=== PATIENT | male | born 1990 | race Two or more races ===

== ENCOUNTER 2019-03-08 23:05 | Emergency (ER) | payer SELFPAY ==
[~2019-03-08] VITALS: Ht 167.6 cm; Wt 99.8 kg
--- NOTE | 2019-03-08 23:05 | NUR ---
ED Nurse Note: pt ambulated to ed c/o chest pain [id number]. reports numbness on left arm. AO4. nad. Sinus Tach. family at bedside.
[2019-03-08 23:25] VITALS: BP 161/92
--- NOTE | 2019-03-08 23:32 | Emergency Room Report ---
History of Present Illness General Chief Complaint: Chest Pain Source: Patient Present Illness HPI Is a 28-year-old male with no past medical history he presents with chief complaint of left arm numbness and chest pain. Onset was acute and occur about an hour or 2 prior to arrival. He was in bed with his son. He said he got up and felt numbness to his arm. His last for a few seconds. He has some funny sensation in his chest. He stood up and felt lightheaded. He was concerned he came into be evaluated. The patient denies any chest pain now. Denies any arm numbness now. He is completely asymptomatic. No shortness of breath. No diaphoresis. Symptoms only last a few minutes. Allergies: Coded Allergies: No Known Allergies (Unverified , 03/08/19) Patient History Past Medical History: see triage record, old chart reviewed Past Surgical History: none Pertinent Family History: none Social History: Denies: smoking Immunizations: other Reviewed Nursing Documentation: PMH: Agreed; PSxH: Agreed Nursing Documentation-PM Past Medical History: No Stated History Review of Systems Eye: Denies: eye pain, blurred vision ENT: Denies: ear pain, nose congestion, throat swelling Respiratory: Denies: cough, shortness of breath Cardiovascular: Reports: chest pain; Denies: palpitations Gastrointestinal: Denies: abdominal pain, diarrhea, nausea, vomiting Musculoskeletal: Denies: back pain, joint pain Skin: Denies: rash Neurological: Denies: headache, numbness Endocrine: Denies: increased thirst, increased urine Hematologic/Lymphatic: Denies: easy bruising All Other Systems: negative except mentioned in HPI Physical Exam Vital Signs Date Time Temp Pulse Resp B/P (MAP) Pulse Ox O2 Delivery O2 Flow Rate FiO2 03/08/19 23:12 98.8 113 22 161/92 (115) 100 Room Air Vitals with high blood pressure Sp02 EP Interpretation: reviewed, normal General Appearance: well appearing, no apparent distress, alert Head: normocephalic, atraumatic Eyes: bilateral eye PERRL, bilateral eye EOMI ENT: hearing grossly normal, normal pharynx Neck: full range of motion, supple, no meningismus Respiratory: chest non-tender, lungs clear, normal breath sounds Cardiovascular #1: regular rate, rhythm, no murmur Gastrointestinal: normal bowel sounds, non tender, no mass, no organomegaly, no bruit, non-distended Musculoskeletal: back normal, gait/station normal, normal range of motion Psychiatric: mood/affect normal Medical Decision Making Diagnostic Impression: Primary Impression: Chest pain Qualified Codes: R07.9 - Chest pain, unspecified Additional Impression: Paresthesia of arm ER Course Patient with transient chest pain and paresthesia. No evidence of TIA or CVA. No evidence of ACS, PE, dissection to name a few. Will discharge home. EKG Diagnostic Results Rate: normal Rhythm: NSR ST Segments: other - RBBB Rhythm Strip Diag. Results EP Interpretation: yes Rate: 85 Rhythm: NSR, no PVC's, no ectopy Last Vital Signs Date Time Temp Pulse Resp B/P (MAP) Pulse Ox O2 Delivery O2 Flow Rate FiO2 03/08/19 23:25 113 22 Room Air 03/08/19 23:25 98.8 161/92 100 Status: improved Disposition: HOME, SELF-CARE Condition: Stable Referrals: NOT CHOSEN IPA/MD,REFERRING (PCP) Patient Instructions: Nonspecific Chest Pain Additional Instructions: Follow-up your doctor in 7 days. Return if worse. Ruben Bonilla MD Mar 08, 2019 23:32
[2019-03-08 23:38] LABS: BASOPHILS % (AUTO) 1.5 % (0.0-2.0); EOSINOPHILS % (AUTO) 4.8 % (0.0-3.0); HEMATOCRIT 47.9 % (42.0-52.0); LYMPHOCYTES % (AUTO) 30.8 % (20.0-45.0); MEAN CORPUSCULAR VOLUME 89 FL (80-99); MONOCYTES % (AUTO) 8.5 % (1.0-10.0); NEUTROPHILS % (AUTO) 54.3 % (45.0-75.0); PLATELET COUNT 205 K/UL (150-450); RED BLOOD COUNT 5.35 M/UL (4.70-6.10); RED CELL DISTRIBUTION WIDTH 11.7 % (11.6-14.8); WHITE BLOOD COUNT 8.1 K/UL (4.8-10.8)
[2019-03-08 23:48] LABS: ANION GAP 6 mmol/L (5-15); BLOOD UREA NITROGEN 22 mg/dL (7-18); CALCIUM 9.8 MG/DL (8.5-10.1); CARBON DIOXIDE 29 MMOL/L (21-32); CHLORIDE 101 MMOL/L (98-107); CREATININE 0.9 MG/DL (0.55-1.30); POTASSIUM 4.7 MMOL/L (3.5-5.1); SODIUM 136 MMOL/L (136-145)
[2019-03-09 00:30] VITALS: BP 128/67
--- NOTE | 2019-03-09 00:30 | NUR ---
ER DISCHARGE NOTE: Patient is cleared to be discharged per ERMD, pt is aox4, on room air, with stable vital signs. accompanied by family members. pt was given dc and prescription instructions, pt was able to verbalize understanding, pt id band and iv site removed without complications. pt is able to ambulate with steady gait. pt took all belongings.
--- NOTE | 2019-03-09 13:57 | Cardiology Report ---
APPROVED REPORT EKG Measurement Heart [id number] Sinus tachycardia Right bundle branch block Abnormal ECG
== END 2019-03-09 00:30 | disposition home or self-care (01) ==
LOC: EMR 23:18
DX: R07.9 Chest pain, unspecified (principal); R20.2 Paresthesia of skin; I45.10 Unspecified right bundle-branch block
CPT/HCPCS: 36415; 80048; 84484; 85025; 93005; 96360; 99284